=== PATIENT | female | born 1975 | race African-American/Black ===

== ENCOUNTER 2020-03-05 11:16 | Emergency (ER) | payer MEDICARE, MEDICAID ==
[~2020-03-05] VITALS: Ht 165.1 cm; Wt 75.0 kg
[2020-03-05] MEDS ORDERED: ACETAMINOPHEN 325MG TABLET PO ONE (12:00)
[2020-03-05 14:15] VITALS: BP 125/75
[2020-03-05] MEDS ORDERED: HYDROCODONE/ACETAMINOPHEN 5/325MG TABLET PO ONE (14:15)
== END 2020-03-05 14:11 | disposition home or self-care (01) ==
LOC: ER 11:25
DX: S02.401A Maxillary fracture, unspecified side, initial encounter for closed fracture (principal); S06.890A Other specified intracranial injury without loss of consciousness, initial encounter; S02.2XXA Fracture of nasal bones, initial encounter for closed fracture; Y04.0XXA Assault by unarmed brawl or fight, initial encounter; Y93.89 Activity, other specified; Y92.89 Other specified places as the place of occurrence of the external cause; Y99.8 Other external cause status
CPT/HCPCS: 70486; 73562; 73610; 99285